=== PATIENT | male | born 1935 | race Caucasian/White ===

== ENCOUNTER 2021-03-04 01:04 | Emergency (ER) | payer MEDICARE ==
[2021-03-04 01:44] LABS: #Basophils 0.1 thou/uL (0.0-0.2); #Monocytes 1.4 thou/uL (0.11-0.59); #Neutrophils 15.3 thou/uL (1.40-6.50); %Basophils 0.4 % (0.0-1.0); %Eosinophils 0.1 % (0.0-10.0); %Lymphocytes 5.6 % (21.0-51.0); %Monocytes 7.7 % (0.0-10.0); %Neutrophils 86.3 % (42.0-75.0); Hemoglobin 15.2 g/dL (14.0-18.0); Mean Corpuscular HGB CONC 32.3 g/dL (32.0-36.0); Mean Platelet Volume 7.9 fL (7.4-10.4); Platelet Count 183 thou/uL (130-400); RBC Distribution Width 13.6 % (11.5-14.5); Red Blood Cell (RBC) Count 5.07 mill/uL (4.70-6.10); White Blood Cell (WBC) Count 17.8 thou/uL (4.8-10.8)
[2021-03-04 01:59] LABS: ALT (SGPT) 9 U/L (8-55); AST (SGOT) 17 U/L (5-34); Albumin 3.6 g/dL (3.4-4.8); Alkaline Phosphatase 106 U/L (40-110); Anion Gap 21 mmol/L (10-20); BUN (Urea Nitrogen) 17 mg/dL (8.4-25.7); Bilirubin, Total 0.9 mg/dL (0.2-1.2); Calc. Creatinine Clearance 0 mL/min (70-130); Calcium 9.6 mg/dL (7.8-10.44); Carbon Dioxide 18 mmol/L (23-31); Chloride 101 mmol/L (98-107); Globulin 3.8 g/dL (2.4-3.5); Glucose 237 mg/dL (83-110); Lipase 62 U/L (8-78); Potassium 4.1 mmol/L (3.5-5.1); Protein, Total 7.4 g/dL (5.8-8.1); Sodium 136 mmol/L (136-145)
[2021-03-04 02:02] LABS: Bilirubin Small (Negative); Blood, Urine Small (Negative); Clarity Clear (Clear); Glucose, Urine (Dipstick) Negative (Negative); Ketone, Urine Negative (Negative); Leukocyte Negative (Negative); Nitrite Negative (Negative); Protein, Urine (Dipstick) > or equal to 300 mg/dL (Neg-Trace); pH, Urine 5.5 (5.0-9.0)
[2021-03-04 02:09] LABS: Specific Gravity, Urine 1.025 (1.002-1.036)
[2021-03-04] MEDS ORDERED: Morphine 4 MG/ML VIAL ONE ×3 (02:09→07:03)
[2021-03-04] MEDS ORDERED: Morphine 2 MG/ML VIAL ONE ×2 (02:09→07:02)
[2021-03-04 02:11] LABS: Bacteria/HPF Rare-Few HPF (None Seen); RBC/HPF 0-3 HPF (0-3); Squamous Epithelial 0-3 HPF (0-3); WBC/HPF 0-3 HPF (0-3)
[2021-03-04] MEDS ORDERED: Cefepime 2 GM VIAL ONE (02:35)
[2021-03-04] MEDS ORDERED: Sodium Chloride 0.9% 100 ML ONE (02:35)
[2021-03-04] MEDS ORDERED: Promethazine HCl 25 MG/ML VIAL ONE (02:56)
[2021-03-04] MEDS ORDERED: Diltiazem 125 MG/25 ML ONE (04:18)
[2021-03-04 04:30] LABS: Base Excess-Venous -8.6 mmol/L (-2.0 to 3.0); Bicarbonate (HCO3v) 18.1 mmol/L (22.0-28.0); CO2 Tension (PvCO2) 40.6 mmHg (42.0-51.0); Chloride 106 mmol/L (98-107); Hemoglobin - Calc 14.4 g/dL (14.0-18.0); Potassium 3.4 mmol/L (3.5-5.1); Sodium 141 mmol/L (138-145); T. Carbon Dioxide 19.4 mmol/L (22.0-28.0); vO2 Saturation-calc 93.7 % (60.0-85.0)
[2021-03-04 04:30] LABS: SARS-CoV-2 NAA Rapid Test Not Detected (NotDetected)
[2021-03-04 05:07] LABS: CKMB 3.5 ng/mL (0-6.6)
[2021-03-04 05:30] LABS: ALT (SGPT) 35 U/L (8-55); AST (SGOT) 54 U/L (5-34); Albumin 3.2 g/dL (3.4-4.8); Alkaline Phosphatase 109 U/L (40-110); Anion Gap 22 mmol/L (10-20); BUN (Urea Nitrogen) 18 mg/dL (8.4-25.7); Bilirubin, Total 0.9 mg/dL (0.2-1.2); Calc. Creatinine Clearance 0 mL/min (70-130); Calcium 8.7 mg/dL (7.8-10.44); Carbon Dioxide 15 mmol/L (23-31); Chloride 106 mmol/L (98-107); Globulin 3.3 g/dL (2.4-3.5); Glucose 162 mg/dL (83-110); Potassium 3.5 mmol/L (3.5-5.1); Protein, Total 6.5 g/dL (5.8-8.1); Sodium 139 mmol/L (136-145)
[2021-03-04 05:32] LABS: Mean Corpuscular HGB CONC 31.8 g/dL (32.0-36.0); Mean Corpuscular Hemoglobin 30.2 pg (27.0-31.0); Mean Platelet Volume 8.4 fL (7.4-10.4); Platelet Count 160 thou/uL (130-400); RBC Distribution Width 13.8 % (11.5-14.5); Red Blood Cell (RBC) Count 4.64 mill/uL (4.70-6.10); White Blood Cell (WBC) Count 18.1 thou/uL (4.8-10.8)
[2021-03-04 05:42] LABS: Base Excess-Venous -10.1 mmol/L (-2.0 to 3.0); Bicarbonate (HCO3v) 17.8 mmol/L (22.0-28.0); CO2 Tension (PvCO2) 45.3 mmHg (42.0-51.0); Calcium, Ionized 1.11 mmol/L (1.15-1.33); Chloride 107 mmol/L (98-107); Hemoglobin - Calc 14.9 g/dL (14.0-18.0); Potassium 3.4 mmol/L (3.5-5.1); Sodium 141 mmol/L (138-145); T. Carbon Dioxide 19.2 mmol/L (22.0-28.0); vO2 Saturation-calc 77.4 % (60.0-85.0)
[2021-03-04 05:55] LABS: Band 13 % (5-11); Lymphocytes 5 % (21-51); MDiff Complete? YES; Monocytes 4 % (0-10); Neutrophil 78 % (42-75); Platelet Morphology Comment Appears Adequate; RBC Morphology Normal
[2021-03-04] MEDS ORDERED: Esmolol 2,500 MG/250 ML 250 ML ONE (06:31)
[2021-03-04 07:12] LABS: Lactic Acid 9.4 mmol/L (0.5-2.2)
[2021-03-04] MEDS ORDERED: Ketamine 50 MG/ML (10ML VIAL) ONE (07:47)
[2021-03-04] MEDS ORDERED: EPINEPHrine 1 MG/10 ML Abboject SYRINGE ONE ×2 (07:49→08:17)
[2021-03-04] MEDS ORDERED: Norepinephrine 4 MG/4 ML VIAL ONE (08:42)
[2021-03-04 09:14] LABS: CO2 Tension (PvCO2) 47.7 mmHg (42.0-51.0)
[2021-03-04 09:15] LABS: Base Excess-Venous -16.6 mmol/L (-2.0 to 3.0); Bicarbonate (HCO3v) 13.6 mmol/L (22.0-28.0); Chloride 111 mmol/L (98-107); Hemoglobin - Calc 14.8 g/dL (14.0-18.0); Potassium 4.2 mmol/L (3.5-5.1); Sodium 142 mmol/L (138-145); vO2 Saturation-calc 97.7 % (60.0-85.0)
[2021-03-04 09:16] LABS: Calcium, Ionized 1.04 mmol/L (1.15-1.33)
== END 2021-03-04 09:30 | disposition short-term general hospital (02) ==
LOC: BURERS 01:04
DX: A41.9 Sepsis, unspecified organism (principal); J18.9 Pneumonia, unspecified organism; K55.059 Acute (reversible) ischemia of intestine, part and extent unspecified; Z20.822 Contact with and (suspected) exposure to COVID-19; I11.0 Hypertensive heart disease with heart failure; I50.9 Heart failure, unspecified; E78.00 Pure hypercholesterolemia, unspecified; J44.9 Chronic obstructive pulmonary disease, unspecified; Z79.82 Long term (current) use of aspirin; Z79.899 Other long term (current) drug therapy; Z79.52 Long term (current) use of systemic steroids
CPT/HCPCS: 31500; 36415; 36556; 51702; 71045; 71250; 74177; 75635; 80053; 81003; 81015; 82330; 82553; 82803; 83605; 83690; 84484; 85025; 87040; 87086; 96365; 96366; 96367; 96374; 96375; 96376; J0171; J0692; J2270; J2550; J3370; J3490; U0002